=== PATIENT | male | born 2000 | race Caucasian/White ===

== ENCOUNTER 2018-08-04 18:10 | Emergency (ER) | payer MEDICAID, OTHER ==
[~2018-08-04] VITALS: Ht 170.2 cm; Wt 70.0 kg
[~2018-08-04 18:10] MED LIST: IBUP-1542 PO; NAPR-688 PO; NAPR-985 PO
[2018-08-04 18:19] VITALS: BP 129/79; PULSE 69; RESP 16; Ht 170.2 cm; Wt 70.0 kg
[2018-08-04] MEDS ORDERED: KETOROLAC 30 MG INJ IM STA (21:10)
[2018-08-04] MEDS ORDERED: IBUP-1542 PO (22:14)
[2018-08-04] MEDS ORDERED: ACET-141 PO (22:14)
[2018-08-04] MEDS ORDERED: ONDA4TAB14 PO (22:18)
--- NOTE | 2018-08-04 22:18 | ERD ---
ER Documentation Chief Complaint Chief Complaint pt is bib self with c/o headache with eye pressure x 5 days HPI 18-year-old male past medical history of hyperparathyroidism presents for he adache x5 days. He states that he also has right thigh pain. The pain is noted to be 8 out of 10. He tried Tylenol and Motrin at home without relief. He took Motrin 200 mg. He also admits to nausea and dizziness. Denies fevers or chills. Denies chest pain or shortness of breath. No other modifying factors noted. No other treatments tried at home. ROS All systems reviewed and are negative except as per history of present illness. Medications Home Meds Active Scripts Ondansetron (Ondansetron Odt) 4 Mg Tab.rapdis, 4 MG PO Q6H PRN for NAUSEA AND/OR VOMITING, #20 TAB Prov:ROSANNA CARRILLO DO 08/04/18 Acetaminophen* (Acetaminophen*) 500 MG Extra Strength Tablet, 500 MG PO Q4H PRN for PAIN AND OR ELEVATED TEMP, #30 TAB Prov:ROSANAN CARRILLO DO 08/04/18 Ibuprofen* (Motrin*) 600 Mg Tab, 600 MG PO Q6H PRN for PAIN AND OR ELEVATED TEMP, #30 TAB Prov:ROSANNA CARRILLO DO 08/04/18 Ibuprofen* (Ibuprofen*) 600 Mg Tablet, 600 MG PO Q8 for PAIN AND/OR INFLAMMATION, #30 TAB Prov:JASPAL WRIGHT MD 01/30/16 Naproxen* (Naprosyn*) 500 Mg Tablet, 500 MG PO BID PRN for PAIN AND/OR INFLAMMATION, #30 TAB Prov:Olga Olmedo PA-C 01/27/16 Reported Medications Naproxen* (Naproxen*) 500 Mg Tablet, 500 MG PO BID PRN for PAIN, TAB 01/30/16 Allergies Allergies: Coded Allergies: No Known Allergy (Unverified , 01/26/16) PMhx/Soc Medical and Surgical Hx: pt denies Medical Hx, pt denies Surgical Hx History of Surgery: No Anesthesia Reaction: No Hx Neurological Disorder: No Hx Respiratory Disorders: No Hx Cardiac Disorders: Yes (patient is unaware of exact diagnosis ) Hx Psychiatric Problems: No Hx Miscellaneous Medical Probl: No Hx Alcohol Use: No Hx Substance Use: No Hx Tobacco Use: No Smoking Status: Never smoker FmHx Family History: No coronary disease Physical Exam Vitals Vital Signs Date Temp Pulse Resp B/P (MAP) Pulse Ox O2 O2 Flow FiO2 Time Delivery Rate 08/04/18 98.3 69 16 129/79 99 18:19 (96) Physical Exam Const: No acute distress Head: Atraumatic, no temporal area tenderness to palpation Eyes: Normal Conjunctiva, pupils equal, round, reactive to light bilaterally ENT: Normal External Ears, bilateral tympanic membrane intact without erythema or bulging noted, Nose and Mouth examination normal. No tonsillar swelling or exudate noted Neck: Full range of motion. No meningismus, no bruits noted Resp: Clear to auscultation bilaterally Cardio: Regular rate and rhythm, no murmurs, bilateral radial and dorsalis pedis pulses intact Skin: No petechiae or rashes Ext: No cyanosis, or edema, 5 out of 5 muscular bilateral upper and lower extremities Neur: Awake and alert, bilateral upper and lower extremity sensation intact Psych: Normal Mood and Affect Results 24 hrs Current Medications Medications Dose Sig/Naomi Start Time Status Last (Trade) Ordered Route PRN Stop Time Admin Dose Reason Admin Ketorolac 30 mg ONCE STAT 08/04/18 DC 08/04/18 Tromethamine IM 21:10 08/04/18 21:22 (Toradol) 21:12 Procedures/MDM Medical Decision Making: Differential diagnosis includes but not limited to primary headache, subarachnoi d hemorrhage, meningitis, temporal arteritis, glaucoma, hypertension, cerebral ischemia, carotid or vertebral arterial dissection, brain tumor. Patient appeared well on physical examination, nontoxic appearing. No history of fever. There is low suspicion for meningitis. Given no temporal area tenderness to palpation, low suspicion for temporal arteritis. Patient has no vision changes and pupils are reactive bilaterally, low suspicion for glaucoma. There is also no focal neurologic deficits to suggest a brain tumor. Patient has normal sensation and muscle strength, low suspicion for cerebral ischemia. Given headache is similar to prior headaches, patient possibly has a primary headache. In the ER patient given Toradol Symptoms improved with treatment. Patient given prescription for supportive medication(s). Patient advised to follow up with PCP in 1-2 days. Patient advised to return to ED for new or worsening symptoms. Patient stable on discharge from the ED. Disclaimer: Inadvertent spelling and grammatical errors are likely due to EHR/dictation software use and do not reflect on the overall quality of patient care. Also, please note that the electronic time recorded on this note does not necessarily reflect the actual time of the patient encounter. Departure Diagnosis: Primary Impression: Headache Headache type: unspecified Headache chronicity pattern: unspecified pattern Intractability: not intractable Qualified Codes: R51 - Headache Patient Instructions: Self-Care for Headaches Referrals: [facility] (PCP) Additional Instructions: Llame al doctor MAANA y edu jessica GONZALES PARA DENTRO DE 1-2 MENSAH.Dgale a la secretaria que nosotros le instruimos hacer esta gonzales.Avise o llame si parham condicin se empeora antes de la gonzales. Regresa aqui si peor o no mejor. ROSANNA CARRILLO DO August 04, 2018 22:17
== END 2018-08-04 22:24 | disposition home or self-care (01) ==
LOC: FTE 18:10
DX: R51 Headache (principal)
CPT/HCPCS: 96372; J1885; Z7502